=== PATIENT | female | born 1960 | race Caucasian/White ===

== ENCOUNTER 2021-09-08 12:31 | Outpatient (CLI) | payer OTHER, SELFPAY ==
--- NOTE | 2021-09-08 12:50 | ECHO_ITS ---
Patient Info Name: Lakia Montesinos Age: 60 years : 1960 Gender: Female Ht: 67 in Wt: 156 lbs BSA: 1.84 m2 HR: 88 bpm BP: 128 / 79 mmHg Technical Quality: Good Exam Date: 09/08/2021 1:44 PM Exam Location: [facility] Pulmonary Patient Status: Outpatient Admit Date: 09/08/2021 Staff Ordering Physician: Eugene Hanna MD Wildlife Ecologist: Nicolasa Max RDCS Attending Provider: Eugene Hanna MD Referring Physician: Cyndi GARCIA; Exam Type: CA echo doppler color flow Study Info Indications R07.89 - Other chest pain Complete two-dimensional, color flow and Doppler transthoracic echocardiogram is performed. Summary 1. Complete two-dimensional, color flow and Doppler transthoracic echocardiogram is performed. 2. Left ventricular chamber dimension is normal. 3. Left ventricular systolic function is normal, estimated at 55-60%. 4. The left ventricular diastolic function is grade I diastolic dysfunction. 5. E/e' 7 is not elevated. 6. There is trace tricuspid valve regurgitation. 7. No pulmonary hypertension, estimated pulmonary arterial systolic pressure is 27 mmHg. 8. There is loculated small to moderate posterior pericardial effusion measuring up to 1.7 cm. Left Ventricle E/e' 7 is not elevated. Left ventricular chamber dimension is normal. Left ventricular systolic function is normal, estimated at 55-60%. The left ventricular diastolic function is grade I diastolic dysfunction. Right Ventricle Right ventricular chamber dimension is normal. Right ventricular systolic function is normal. Left Atria Left atrial chamber dimension is normal. Right Atria Right atrial chamber dimension is normal. Aortic Valve The aortic valve is trileaflet. There is no aortic valve stenosis. There is no aortic valve regurgitation. Pulmonic Valve There is no pulmonic regurgitation. Mitral Valve There is no mitral valve stenosis. There is no mitral valve regurgitation. Tricuspid Valve There is trace tricuspid valve regurgitation. No pulmonary hypertension, estimated pulmonary arterial systolic pressure is 27 mmHg. Pericardium/Pleural There is loculated small to moderate posterior pericardial effusion measuring up to 1.7 cm. Inferior Vena Cava Normal inferior vena cava with >50% collapse upon inspiration consistent with normal right atrial pressure, 5 mmHg. Aorta The aortic root size at the sinus of Valsalva is normal. Left Ventricular Outflow Tract Name Value Normal LVOT 2D LVOT Diameter 2.0 cm LVOT Doppler LVOT Peak Gradient 3 mmHg LVOT Mean Gradient 1 mmHg LVOT VTI 15 cm LVOT VTI/AV VTI Ratio 0.9 LVOT Stroke Volume 48 ml LVOT CO 11.3 l/min LVOT CI 6.1 l/min/m2 Pulmonic Valve Name Value Normal
--- NOTE | 2021-09-11 12:21 | WPDHOLTEREM ---
Holter/Event Monitor Holter/Event Monitor Date of procedure: 09/08/21 Holter/Event Procedure: 48 Hr Holter Monitor Indications: Chest pain Conclusion: 1. 48 hour holter monitor on 09/08/21. 2. Underlying rhythm is sinus rhythm. HR range 43-162 bpm; average HR 87 bpm. 3. There are 345 premature supraventricular complexes, 1 supraventricular couplet, and 54 supraventricular trigeminy. 4. There are 3 premature ventricular complexes. No ventricular tachycardia. 5. No sinoatrial or atrioventricular blocks. No significant pauses greater than 2 seconds. 6. Patient reports symptoms of flutter which demonstrate sinus rhythm, HR range 81-123 bpm.
== END 2021-09-08 12:32 | disposition home or self-care (01) ==
PROVIDERS: PCP Internal Medicine; Visit Provider Internal Medicine
DX: R07.9 Chest pain, unspecified (principal); R00.2 Palpitations; I31.3 Pericardial effusion (noninflammatory)
CPT/HCPCS: 93225; 93226; 93306

== ENCOUNTER 2021-09-15 08:44 | Outpatient (CLI) | payer OTHER, SELFPAY ==
--- NOTE | ~2021-09-15 | XR_ITS ---
EXAMINATION: XR UGIAC w barium swallow DATE: 09/15/2021 09:23 INDICATION: Gastroesophageal reflux disease. Other chest pain. TECHNIQUE: The patient drank thick barium, gas-producing crystals, and thin barium. Fluoroscopy of th e esophagus, stomach, and proximal small bowel was performed. Fluoroscopy exposure time was 0.5 minut es. The total number of images was 453. Total dose-area product was 0.9 Gy-cm^2. COMPARISON: None. FINDINGS: There is no mass or stricture of the esophagus. Esophageal motility is normal. There is no hiatal hernia. There was no gastroesophageal reflux with provocative maneuvers. The stomach and proxi mal small bowel show normal folding patterns. IMPRESSION: 1. Normal esophagram and upper gastrointestinal series. Reviewed, dictated and finalized at location A.
== END 2021-09-15 08:45 | disposition home or self-care (01) ==
PROVIDERS: PCP Internal Medicine; Visit Provider Internal Medicine
DX: R07.89 Other chest pain (principal); R10.13 Epigastric pain; R13.10 Dysphagia, unspecified
CPT/HCPCS: 74246

== ENCOUNTER 2022-03-30 09:36 | Outpatient (CLI) | payer OTHER, SELFPAY ==
--- NOTE | ~2022-03-30 | XR_ITS ---
EXAMINATION: XR ankle LT min 3V DATE: 03/30/2022 09:53 INDICATION: Left ankle pain TECHNIQUE: Anteroposterior, lateral, mortise, and additional oblique view of the ankle were obtained. COMPARISON: None. FINDINGS: There is mild irregularity at the medial malleolus which has the appearance of a prior frac ture. No acute fracture is identified. Bone alignment is normal. The joint spaces are unremarkable. P osterior and plantar calcaneal enthesophytes are noted. IMPRESSION: 1. No acute osseous abnormality. Reviewed, dictated and finalized at location A.
== END 2022-03-30 09:37 | disposition home or self-care (01) ==
PROVIDERS: PCP Internal Medicine; Visit Provider Internal Medicine
DX: S99.912A Unspecified injury of left ankle, initial encounter (principal); M77.32 Calcaneal spur, left foot
CPT/HCPCS: 73610

== ENCOUNTER 2022-04-30 00:11 | Day surgery (SDC) | payer OTHER, SELFPAY ==
[2022-03-05 11:34] VITALS: BMI 24.1
[2022-04-13 15:10] VITALS: BMI 24.1
--- NOTE | 2022-04-13 15:11 | PC.NURSE ---
Spoke with pt. regarding new date and time of procedure. No questions or concerns. Verbalized understanding. Chart updated.
--- NOTE | 2022-04-30 06:38 | PM.HPGS ---
History of Present Illness History of Present Illness Consent: Risks, benefits, and alternatives have been discussed and questions answered. Patient agrees to proceed with procedure. Chief complaint: hx of colon polyps, neoplasm screening Narrative: Lakia Montesinos is a 61 year old female Who is referred for colon cancer screening. She has had a polyp removed in the past. An uncle on her mother's side and Mike parent on her father side had colon .cancer Review of Systems Review of Systems: All systems reviewed & are unremarkable except as noted in HPI and below PMFSH Past Medical History Medical History Abnormal finding of blood chemistry Aphthous ulcer BMI 23.0-23.9, adult BMI 24.0-24.9, adult Chronic fatigue Chronic pain of right knee Constipation Encounter for preventive health examination Encounter for routine adult health examination without abnormal findings Family history of breast cancer FHx: colon cancer Frequent UTI GERD (gastroesophageal reflux disease) Hx of colonic polyps Hyperlipidemia IFG (impaired fasting glucose) Impacted cerumen of both ears Impacted cerumen of both ears Mild single current episode of major depressive disorder On skilled nursing drug therapy Osteopenia Osteoporosis Osteoporosis Palpitations Personal history of COVID-19 Primary insomnia Rectal pain Right hip pain Suprapubic pain Urinary frequency Surgical History Surgical History History of total right knee replacement Family History Family History Mother Diabetes mellitus Hypertension Family history of kidney disease Sibling Family history of malignant neoplasm of breast in first degree relative Social History Social History Smoking packs per day: 0.25 Smoking cigarettes per day: 5.0 Years smoked: 3 Smoking pack-years: 0.75 Smoking status: Former smoker Tobacco type: cigarettes Second hand tobacco smoke exposure: No Smoking end date: 07/05/78 Alcohol intake: current Alcohol use details: occasional wine Substance use: current Other substance usage details: 5mg THC gummy at bedtime Living arrangements: with family Spiritual care concerns: No Meds Home Medications and Allergies Home Medications Medication Instructions Recorded Confirmed Type cephalexin 250 mg capsule 250 mg PO PRN PRN other 12/20/19 03/05/22 History ascorbic acid (vitamin C) 500 mg 500 mg PO DAILY 12/05/20 03/05/22 History tablet ibuprofen 200 mg tablet (Advil) 200 mg PO Q6H PRN Pain 12/05/20 03/05/22 History zinc sulfate 50 mg zinc (220 mg) 50 mg PO DAILY 12/05/20 03/05/22 History tablet rosuvastatin 20 mg tablet See Rx Instructions .Route 05/09/21 03/05/22 Rx .COMPLEX #90 tabs cholecalciferol (vitamin D3) 50 50 mcg PO DAILY 06/19/21 03/05/22 History mcg (2,000 unit) capsule famotidine 20 mg tablet See Rx Instructions .Route 04/13/22 04/13/22 Rx .COMPLEX #90 tabs Allergies Allergy/AdvReac Type Severity Reaction Status Date / Time amoxicillin AdvReac Mild Hives / Verified 04/30/22 06:50 Red Face Exam Resp: Auscultation: clear to auscultation bilaterally Cardio: Rate: regular rate Rhythm: regular rhythm GI: GI Palp: Yes Soft to palpation and No Tenderness to palpation present (GI) Assessment and Plan Assessment and plan (1) Colon cancer screening: Code(s): Z12.11 - Encounter for screening for malignant neoplasm of colon Status: Acute Assessment and Plan: Colonoscopy with possible biopsy or polypectomy or cautery or injection of substances.
[2022-04-30 06:51] VITALS: BP 132/72; PULSE 93; RESP 18; TEMP 36.2; O2SAT 99; BMI 24.0
[2022-04-30] MEDS: LACTATED RINGERS 1,000 ML 150 ML IV CONT (07:01)
--- NOTE | 2022-04-30 07:56 | WPDANESEPPF ---
Anes - Initial Pre Proc Eval Procedure: Operation Date: 04/30/22 08:00 Proposed Procedures p Screening Colonoscopy - Juan Pablo Gaston MD Date/Time: 04/30/22 07:56 Surgeon: Juan Pablo Gaston MD Pre Op Diagnosis: hx of colon polyps, neoplasm screening Patient Data Age: 61 Gender: F Height: 1.7 m Weight: 69.8 kg Last Vital Signs Temp 97.1 F L 04/30/22 06:51 Pulse 93 04/30/22 06:51 Resp 18 04/30/22 06:51 BP 132/72 04/30/22 06:51 Pulse Ox 99 04/30/22 06:51 O2 Del Method Room Air 04/30/22 06:51 Allergies Allergy/AdvReac Type Severity Reaction Status Date / Time amoxicillin AdvReac Mild Hives / Verified 04/30/22 06:50 Red Face Home Medications Medication Instructions Recorded Confirmed Type cephalexin 250 mg capsule 250 mg PO PRN PRN other 12/20/19 03/05/22 History ascorbic acid (vitamin C) 500 mg 500 mg PO DAILY 12/05/20 03/05/22 History tablet ibuprofen 200 mg tablet (Advil) 200 mg PO Q6H PRN Pain 12/05/20 03/05/22 History zinc sulfate 50 mg zinc (220 mg) 50 mg PO DAILY 12/05/20 03/05/22 History tablet rosuvastatin 20 mg tablet See Rx Instructions .Route 05/09/21 03/05/22 Rx .COMPLEX #90 tabs cholecalciferol (vitamin D3) 50 50 mcg PO DAILY 06/19/21 03/05/22 History mcg (2,000 unit) capsule famotidine 20 mg tablet See Rx Instructions .Route 04/13/22 04/13/22 Rx .COMPLEX #90 tabs Patient hx anesthesia problems: none Family hx anesthesia problems: none Results Review: All pre-operative results and documents have been reviewed as part of the pre-operative evaluation. [facility] Past Medical History Medical History Abnormal finding of blood chemistry Aphthous ulcer BMI 23.0-23.9, adult BMI 24.0-24.9, adult Chronic fatigue Chronic pain of right knee Constipation Encounter for preventive health examination Encounter for routine adult health examination without abnormal findings Family history of breast cancer FHx: colon cancer Frequent UTI GERD (gastroesophageal reflux disease) Hx of colonic polyps Hyperlipidemia IFG (impaired fasting glucose) Impacted cerumen of both ears Impacted cerumen of both ears Mild single current episode of major depressive disorder 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 Osteopenia Osteoporosis Osteoporosis Palpitations Personal history of COVID-19 Primary insomnia Rectal pain Right hip pain Suprapubic pain Urinary frequency Surgical History Surgical History History of total right knee replacement Family History Family History Mother Diabetes mellitus Hypertension Family history of kidney disease Sibling Family history of malignant neoplasm of breast in first degree relative Social History Social History Smoking packs per day: 0.25 Smoking cigarettes per day: 5.0 Years smoked: 3 Smoking pack-years: 0.75 Smoking status: Former smoker Tobacco type: cigarettes Second hand tobacco smoke exposure: No Smoking end date: 07/05/78 Alcohol intake: current Alcohol use details: occasional wine Substance use: current Other substance usage details: 5mg THC gummy at bedtime Living arrangements: with family Spiritual care concerns: No Anes - Eval Final PreProcedure Day of Procedure 04/30/22 07:56 Patient weight: normal Heart: regular rate and rhythm Lungs: clear to auscultation Neurological: alert and oriented Last oral intake: >/= 8 hours ASA classification: II Emergent: no Anesthetic plan: proceed Anesthesia type and monitoring: general GIVS and standard monitoring Results Review: All pre-operative results and documents have been reviewed as part of the pre-operative evaluation. Informed Consent: The patient's anesthetic plan and its attendant risks and benefits were discussed with
[2022-04-30 08:13] VITALS: BP 93/59; PULSE 74; RESP 20; O2SAT 97
[2022-04-30 08:23] VITALS: BP 113/66; PULSE 80; RESP 17; O2SAT 100
[2022-04-30 08:33] VITALS: BP 127/89; PULSE 89; RESP 23; O2SAT 100
== END 2022-04-30 08:39 | disposition home or self-care (01) ==
PROVIDERS: PCP Internal Medicine; Visit Provider Internal Medicine Gastroenterology
PROC: 0DJD8ZZ Inspection of Lower Intestinal Tract, Via Natural or Artificial Opening Endoscopic (ICD-10-PCS; CPT 45378; principal; 2022-04-30 08:00)
DX: Z12.11 Encounter for screening for malignant neoplasm of colon (principal); Z80.0 Family history of malignant neoplasm of digestive organs; K21.9 Gastro-esophageal reflux disease without esophagitis; E78.5 Hyperlipidemia, unspecified; M81.0 Age-related osteoporosis without current pathological fracture; F32.89 Other specified depressive episodes; Z87.891 Personal history of nicotine dependence; F12.90 Cannabis use, unspecified, uncomplicated
CPT/HCPCS: 45378; J2704; J7120

== ENCOUNTER 2022-07-15 06:46 | Outpatient (CLI) | payer OTHER, SELFPAY ==
--- NOTE | ~2022-07-15 | XR_ITS ---
EXAMINATION: XR thoracic spine 3V DATE: 07/15/2022 07:05 INDICATION: Thoracic spine pain TECHNIQUE: AP, lateral in neutral, flexion, extension and lateral swimmer's views of the thoracic spi ne were obtained. COMPARISON: 10/24/2017 FINDINGS: There is a compression fracture of the T8 vertebral body with approximately 40% loss of ant erior vertebral body height. There is a mild compression fracture of T12 with approximately 30% loss of anterior vertebral body height. No hypermobility is noted with flexion or extension. The remaining vertebral body heights are normal. The intervertebral disc spaces are maintained. The lungs are vicente r. The cardiomediastinal silhouette is normal. IMPRESSION: 1. Age indeterminate compression fractures of T8 and T12. Reviewed, dictated and finalized at location B. 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
== END 2022-07-15 06:47 | disposition home or self-care (01) ==
PROVIDERS: PCP Internal Medicine; Visit Provider Internal Medicine
DX: S22.060A Wedge compression fracture of T7-T8 vertebra, initial encounter for closed fracture (principal); S22.070A Wedge compression fracture of T9-T10 vertebra, initial encounter for closed fracture; S22.080A Wedge compression fracture of T11-T12 vertebra, initial encounter for closed fracture; X58.XXXA Exposure to other specified factors, initial encounter
CPT/HCPCS: 72072

== ENCOUNTER 2022-10-01 00:14 | Day surgery (SDC) | payer OTHER, SELFPAY ==
[2022-09-18 14:03] VITALS: BMI 24.8
--- NOTE | 2022-09-30 14:14 | PM.HPGS ---
History of Present Illness History of Present Illness Consent: Risks, benefits, and alternatives have been discussed and questions answered. Patient agrees to proceed with procedure. Chief complaint: GERD Narrative: Lakia Montesinos is a 61 year old female Who suffers from chronic acid reflux symptoms. She does regurgitate liquids particularly when bending over.? After starting her on pantoprazole once a day her symptoms are marginally improved. Review of Systems Review of Systems: All systems reviewed & are unremarkable except as noted in HPI and below PMFSH Past Medical History Medical History Abnormal finding of blood chemistry Aphthous ulcer BMI 24.0-24.9, adult Chest pain Chronic fatigue Chronic pain of right knee Dysphagia Encounter for preventive health examination Family history of breast cancer FHx: colon cancer Frequent UTI GERD (gastroesophageal reflux disease) Hx of colonic polyps Hyperlipidemia IFG (impaired fasting glucose) Impacted cerumen of both ears Impacted cerumen of both ears Mild single current episode of major depressive disorder On correction drug therapy Osteopenia Osteoporosis Palpitations Personal history of COVID-19 Primary insomnia Rectal pain Right hip pain Suprapubic pain Thoracic back pain Surgical History Surgical History History of total right knee replacement Family History Family History Mother Diabetes mellitus Hypertension Family history of kidney disease Sibling Family history of malignant neoplasm of breast in first degree relative Social History Social History Smoking packs per day: 0.25 Smoking cigarettes per day: 5.0 Years smoked: 3 Smoking pack-years: 0.75 Smoking status: Former smoker Tobacco type: cigarettes Second hand tobacco smoke exposure: No Smoking end date: 07/05/78 Alcohol intake: current Alcohol use details: 1-2 glasses of wine Substance use: current Substance use type: marijuana Other substance usage details: nightly for sleep Lack of Transportation: No Lack of Food: Never True Current Housing: I Have Housing Concerned About Future Housing: No Difficulty Paying Gas/Electric Bills: No Difficulty Paying for Meds: No Currently Unemployed: No Education: High School Diploma/GED Difficulty w/ Childcare or Family Care: No Living arrangements: with family Gender identity (if verbalized by the patient): Female Spiritual care concerns: No Meds Home Medications and Allergies Home Medications Medication Instructions Recorded Confirmed Type cephalexin 250 mg capsule 250 mg PO PRN PRN other 12/20/19 10/01/22 History ascorbic acid (vitamin C) 500 mg 500 mg PO DAILY 12/05/20 10/01/22 History tablet ibuprofen 200 mg tablet (Advil) 200 mg PO Q6H PRN Pain 12/05/20 10/01/22 History zinc sulfate 50 mg zinc (220 mg) 50 mg PO DAILY 12/05/20 10/01/22 History tablet pantoprazole 40 mg tablet,delayed 40 mg PO QAM #90 tabs 07/08/22 10/01/22 Rx release cholecalciferol (vitamin D3) 50 100 mcg PO DAILY 07/15/22 10/01/22 History mcg (2,000 unit) capsule rosuvastatin 20 mg tablet 20 mg PO DAILY 09/18/22 10/01/22 History Allergies Allergy/AdvReac Type Severity Reaction Status Date / Time amoxicillin AdvReac Mild Hives / Verified 10/01/22 07:39 Red Face Exam Const: General: alert Orientation/consciousness: patient oriented x3 Resp: Auscultation: clear to auscultation bilaterally Cardio: Rhythm: regular rhythm GI: GI Palp: Yes Soft to palpation and No Tenderness to palpation present (GI) Neuro: General: patient oriented x3 Assessment and Plan Assessment and plan (1) GERD (gastroesophageal reflux disease): Code(s): K21.9 - Gastro-esophageal reflux disease
[2022-10-01 07:40] VITALS: BP 118/71; PULSE 95; RESP 16; TEMP 36.3; O2SAT 99
[2022-10-01] MEDS: LACTATED RINGERS 1,000 ML 150 ML IV CONT (07:48)
--- NOTE | 2022-10-01 08:09 | WPDANESEPPF ---
Anes - Initial Pre Proc Eval Procedure: Operation Date: 10/01/22 09:00 Proposed Procedures p Esophagogastroduodenoscopy - Juan Pablo Gaston MD Date/Time: 10/01/22 08:09 Surgeon: Juan Pablo Gaston MD Pre Op Diagnosis: GERD Patient Data Age: 61 Gender: F Height: 1.7 m Weight: 70.9 kg Last Vital Signs Temp 36.3 C L 10/01/22 07:40 Pulse 95 10/01/22 07:40 Resp 16 10/01/22 07:40 BP 118/71 10/01/22 07:40 Pulse Ox 99 10/01/22 07:40 O2 Del Method Room Air 10/01/22 07:40 Allergies Allergy/AdvReac Type Severity Reaction Status Date / Time amoxicillin AdvReac Mild Hives / Verified 10/01/22 07:39 Red Face Home Medications Medication Instructions Recorded Confirmed Type cephalexin 250 mg capsule 250 mg PO PRN PRN other 12/20/19 10/01/22 History ascorbic acid (vitamin C) 500 mg 500 mg PO DAILY 12/05/20 10/01/22 History tablet ibuprofen 200 mg tablet (Advil) 200 mg PO Q6H PRN Pain 12/05/20 10/01/22 History zinc sulfate 50 mg zinc (220 mg) 50 mg PO DAILY 12/05/20 10/01/22 History tablet pantoprazole 40 mg tablet,delayed 40 mg PO QAM #90 tabs 07/08/22 10/01/22 Rx release cholecalciferol (vitamin D3) 50 100 mcg PO DAILY 07/15/22 10/01/22 History mcg (2,000 unit) capsule rosuvastatin 20 mg tablet 20 mg PO DAILY 09/18/22 10/01/22 History Patient hx anesthesia problems: none Family hx anesthesia problems: none Results Review: All pre-operative results and documents have been reviewed as part of the pre-operative evaluation. 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 Osteopenia Osteoporosis Palpitations Personal history of COVID-19 Primary insomnia Rectal pain Right hip pain Suprapubic pain Thoracic back pain Surgical History Surgical History History of total right knee replacement Family History Family History Mother Diabetes mellitus Hypertension Family history of kidney disease Sibling Family history of malignant neoplasm of breast in first degree relative Social History Social History Smoking packs per day: 0.25 Smoking cigarettes per day: 5.0 Years smoked: 3 Smoking pack-years: 0.75 Smoking status: Former smoker Tobacco type: cigarettes Second hand tobacco smoke exposure: No Smoking end date: 07/05/78 Alcohol intake: current Alcohol use details: 1-2 glasses of wine Substance use: current Substance use type: marijuana Other substance usage details: nightly for sleep Lack of Transportation: No Lack of Food: Never True Current Housing: I Have Housing Concerned About Future Housing: No Difficulty Paying Gas/Electric Bills: No Difficulty Paying for Meds: No Currently Unemployed: No Education: High School Diploma/GED Difficulty w/ Childcare or Family Care: No Living arrangements: with family Gender identity (if verbalized by the patient): Female Spiritual care concerns: No Anes - Eval Final PreProcedure Day of Procedure 10/01/22 08:09 Patient weight: normal Heart: regular rate and rhythm Lungs: clear to auscultation Airway: Mallampati scale class II Neurological: alert and oriented Last oral intake: >/= 8 hours ASA classification: II Emergent: no Anesthetic plan: proceed Anesthesia type
[2022-10-01] MEDS: BENZOCAINE (*SP) 60 ML SPRAY CAN (HURRICAINE) 1 SPRAY MUCOUS MEM (08:58)
[2022-10-01 09:09] VITALS: BP 109/72; PULSE 76; RESP 16; O2SAT 98
[2022-10-01 09:19] VITALS: BP 110/79; PULSE 78; RESP 20; O2SAT 99
[2022-10-01 09:29] VITALS: BP 116/77; PULSE 76; RESP 20; O2SAT 99
== END 2022-10-01 09:34 | disposition home or self-care (01) ==
PROVIDERS: PCP Internal Medicine; Visit Provider Internal Medicine Gastroenterology
PROC: 0DJ08ZZ Inspection of Upper Intestinal Tract, Via Natural or Artificial Opening Endoscopic (ICD-10-PCS; CPT 43235; principal; 2022-10-01 09:00)
DX: K21.9 Gastro-esophageal reflux disease without esophagitis (principal); K29.70 Gastritis, unspecified, without bleeding; E78.5 Hyperlipidemia, unspecified; M81.0 Age-related osteoporosis without current pathological fracture; Z87.891 Personal history of nicotine dependence; F12.90 Cannabis use, unspecified, uncomplicated
CPT/HCPCS: 43239; 87081; J2704; J7120

== ENCOUNTER 2024-05-16 13:03 | Outpatient (CLI) | payer OTHER, SELFPAY ==
--- NOTE | ~2024-05-16 | XR_ITS ---
XR abdomen obstructive series Ordering provider: Eugene Hanna MD History: . MID ABD PAIN/CONSTIPATION . Comparison: None. FINDINGS: BOWEL: Fecal material seen in the right side of the colon. Nonobstructive bowel gas pattern. ORGANOMEGALY: None. SIGNIFICANT PATHOLOGIC CALCIFICATIONS: None. OTHER: No free air is seen under the diaphragm. IMPRESSION: NO ACUTE ABDOMINAL FINDINGS. Reviewed, dictated and finalized at location A. DRIVER
== END 2024-05-16 13:04 | disposition home or self-care (01) ==
PROVIDERS: PCP Internal Medicine; Visit Provider Internal Medicine
DX: R10.9 Unspecified abdominal pain (principal); K59.00 Constipation, unspecified
CPT/HCPCS: 74019

== ENCOUNTER 2024-08-28 09:08 | Outpatient (CLI) | payer OTHER, SELFPAY ==
--- OUTSIDE RECORDS SUMMARY | 2024-08-28 09:43 | XMS_ITS | Referral Summary ---
Author Organization [facility] Address [address] [place] [address] Care Team Providers Care Paunch Trimmer Name Role Phone Alexander Muñoz MD Unavailable [phone] Eugene Hanna MD Primary Care Provider [phone] Source Comments [facility],non-owned Affiliates and Associated Physician Practices is amultiple site organization consisting of ambulatory clinics and hospital sitesin [place], [place], [place] and [place]. This disclosure is being madepursuant to the Care Everywhere program and may not contain all information available regarding this patient. Last updated 18.[facility] Allergies Active Allergy Reactions Criticality Noted Date Comments Amoxicillin Unknown 08/27/2017 Hot flashes Medications * Be aware that medications may not be up to date on this document. Alwaysverify current medications with the patient. Medication Sig Dispensed Refills Start Date End Date Status rosuvastatin (CRESTOR) 20 MG tablet Take 20 mg by mouth once daily 09/08/2020 Active cephalexin (KEFLEX) 250 MG capsule Take 250 mg by mouth once daily as needed 1 capsule within 1 hr of intercourse Active Naphazoline-Phenira mine (NAPHCON-A OP) 1 drop by Ophthalmic route 2 times daily as needed Active vitamin D3 (CHOLECALCIFEROL) 25 MCG (1000 UNITS) tablet Take by mouth once daily Active erythromycin base EC (JAIRO-TAB) 333 MG tabletIndications:P resence of right artificial knee joint Take 1 (one) tablet by mouth 3 times daily Take 1 pill 3 times daily on the day of dental appointment and again the day after dental appointment 18 tablet 2 01/20/2022 Active Active Problems Problem Noted Date Diagnosed Date Presence of right artificial knee joint 01/24/20 22 Pure hypercholesterolemia 08/02/2019 Mild single current episode of major depressive disorder 08/02/2019 History of colon polyps 08/02/2019 Chronic fatigue 08/02/2019 Primary osteoarthritis of right knee 02/21/2018 Palpitations 07/08/2017 Family history of breast cancer 10/17/2014 Social History Tobacco Use Types Packs/Day Years Used Date Smoking Tobacco: Former Cigarettes Q uit: 1979 Smokeless Tobacco: Never Alcohol Use Standard Drinks/Week Comments Yes 0 (1 standard drink = 0.6 oz pur e alcohol) glass of red wine periodically Sex and Gender Information Value Date Recorded Sex Assigned at Not on file Gender Identity Not on file Sexual Orientation Not on file Last Filed Vital Signs Vital Sign Reading Time Taken Comments Blood Pressure 129/64 01/21/2021 11:14 AM CDT Pulse 105 01/21/2021 11:14 AM CDT Temperature 36.9 C (98.4 F) 01/21/2021 11:14 AM CDT Respiratory Rate 17 01/21/2021 11:1 4 AM CDT Oxygen Saturation 97% 01/21/2021 11: 14 AM CDT Inhaled Oxygen Concentration - - Weight 70.2 kg (154 lb 12.8 oz) 01/20/2021 6:06 AM CDT Height 170.2 cm (5' 7 ) 01/20/2021 6:06 AM CDT Body Mass Index 24.25 01/20/2021 6:06 AM CDT Plan of Treatment Not on file Medical Devices Implanted Type Area Hydro Generation Manager Device Identifier Shelf Expiration Date Model / Serial / Lot Cmnt Bone Djo Srg Cblt 40gm Hvisc Strl Implanted:Qty: 1 on 01/20/2021 by Alexander Muñoz MD at [facility] Right: Knee [employer] 06/15/2021 600-15-000 / / [id number] Cmpnt Ptlr 28mm 1 Pg Wire Ascnt Arcm Kn Implanted:Qty: 1 on 01/20/2021 by Alexander Muñoz MD at [facility] Right: Knee [employer] 12/06/2025 [id number] / / [id number] Cmpnt Fem Kn Rt Cr Cmnt Prm Vngrd Intlk Implanted:Qty: 1 on 01/20/2021 by Alexander Muñoz MD at [facility] Right: Knee [employer] 10/24/2030 [id number] / / [id number] Tray Tib 75mm Kn Cocr I Beam Implanted:Qty: 1 on 01/20/2021 by Alexander Muñoz MD at [facility] Right: Knee [employer] 11/01/2030 [id number] / / [id number] Brng [id number] Vngrd Arcm Kn Ant Stab Implanted:Qty: 1 on 01/20/2021 by Alexander Muñoz MD at [facility] Right: Knee [employer] 09/07/2023 [id number] / / [id number] Advance Directives Documents on File Type Date Recorded Patient Movement Assembler Expl anation Adv Directive/Living Will/POA 12/27/2020 9:45 PM * Full Code (Latest Code Status on File) Date Activated Date Inactivated Comments 01/20/2021 10:46 AM 01/21/2021 1:40 PM Care Teams Paunch Trimmer Relationship Specialty Start Date End Date Eugene Hanna MD [address] [place] [address] PCP - General Internal Medicine 08/30/19 Alexander Muñoz [place] [address] [facility] [address] [address] Orthopedic Surgery 02/18/18
--- OUTSIDE RECORDS SUMMARY | 2024-08-28 09:43 | XMS_ITS | Clinical Summary ---
Author Organization [facility] [place] [address] Address [address] [place] [address] Care Team Providers Care Computer Security Specialist Name Role Phone Eugene Hanna MD Primary Care Provider [phone] Allergies Active Allergy Reactions Criticality Noted Date Comments Amoxicillin Unknown 08/27/2017 Hot flashes Medications cephalexin (KEFLEX) 250 mg capsule Take 1 capsule (250 mg total) by mouth daily as needed Active cholecalciferol 25 mcg (1,000 unit) tablet Take by mouth daily Active erythromycin DR (JAIRO-TAB) 333 mg Take 1 tablet (333 mg total) by mouth 3 (three) times a day 2 Active raloxifene (EVISTA) 60 mg tablet Take 1 tablet (60 mg total) by mouth daily 9 Active rosuvastatin (CRESTOR) 20 mg tablet Take 1 tablet (20 mg total) by mouth daily 1 Active meloxicam (MOBIC) 15 mg tablet Take 1 tablet (15 mg total) by mouth daily with breakfast Take 1 daily with food 30 tablet 4 Active Active Problems Problem Noted Date Diagnosed Date Presence of right artificial knee joint 01/24/20 22 Chronic fatigue 08/02/2019 Mild single current episode of major depressive disorder 08/02/2019 Pure hypercholesterolemia 08/02/2019 Primary osteoarthritis of right knee 02/21/2018 Palpitations 07/08/2017 Hot flashes, menopausal 02/06/2015 Surgical History Surgery Date Site/Laterality Comments JOINT REPLACEMENT Knee 01/2021 Medical History Medical History Date Comments GERD (gastroesophageal reflux disease) 2 Anxiety 2020 Family History Medical History Relation Name Comments Alcohol abuse Father Father Kidney disease Mother Mother Relation Name Status Comments Father Father Mother Mother Social History Tobacco Use Types Packs/Day Years Used Date Smoking Tobacco: Never Cigarettes 0.3 5.4 - 04/22/1979 Passive Smoke Exposure: Yes Smokeless Tobacco: Never Tobacco Cessation:Counseling Given: Not Answered Comments:Social smoker as a teen Personal Safety Answer Date Recorded Getting School Help Needed Not on file 09/17 Comments Unknown Sex and Gender Information Value Date Recorded Sex Assigned at Not on file Legal Sex Female 12:39 AM PAYROLL ANALYST Gender Identity Not on file Sexual Orientation Not on file Obstetrics History Last Filed Vital Signs Vital Sign Reading Time Taken Comments Blood Pressure - - Pulse - - Temperature - - Respiratory Rate - - Oxygen Saturation - - Inhaled Oxygen Concentration - - Weight 70.8 kg (156 lb) 12/14/2023 9:30 AM CDT Height 170.2 cm (5' 7 ) 12/14/2023 9:30 AM CDT Body Mass Index 24.43 12/14/2023 9:30 AM CDT Plan of Treatment Health Maintenance Due Date Last Done Comments Cervical Cancer Screening 1959 Colon Cancer Screening-Colonoscopy 1959 Depression Screening 1959 Hepatitis C Screening 1959 DTaP/Tdap/Td Vaccine (1 - Tdap) 11/22/1970 Hepatitis B Screening 11/22/1977 Regular Well Visit/Exam 18-64 11/22/1977 Zoster Vaccine (1 of 2) 11/22/2009 Covid-19 Vaccine ( season) 2024 06/13/2021, 09/25/2020 Influenza Vaccine (#1) 2024 07/13/2012 Breast Cancer Screening-Mammogram 08/19/2024 08/19/2023, 08/19/2023, 07/30/2022, Additional history exists Pneumococcal vaccine <65 Aged Out No longer eligible based on patient's age to complete this topic Procedures Procedure Name Priority Date/Time Associated Diagnosis Comments SCREENING MAMMOGRAM W ENZO Routine 05/07/2014 12:57 PM PAYROLL ANALYST from Last 3 Months or Most Recently Relevant to Health Maintenance Results * Screening Mammogram W Enzo (05/07/2014 12:57 PM PAYROLL ANALYST) Anatomical Region Laterality Modality Breast N/A Mammography 05/07/2014 12:5 7 PM PAYROLL ANALYST Narrative 05/09/2014 11:11 AM PAYROLL ANALYST YARITZA MORTON M.D. FINAL REPORT ACC# Date Time Exam [id number] May 07, 2014 12:57:00 [facility] [place] [id number] Bilateral screen w enzo Technologist(s): Christa Garces; ; EXAMINATION: Mammogram Technique: Bilateral Bilateral Full-Field Digital Screening Mammogram and Digital Breast Tomosynthesis were performed. Views obtained: bilateral craniocaudal and bilateral mediolateral oblique. Computer Aided Detection of the 2D images was performed with [employer].3 version 9.3. Mammogram Findings: The present examination has been compared to prior imaging studies performed at [facility] on 05/09/2013, 05/05/2013 and 04/26/2012. There are scattered fibroglandular densities. There are multiple masses in both breasts. Finding remains unchanged from the prior study. IMPRESSION: Masses in both breasts are benign. Annual screening mammography is recommended. OVERALL FINAL ASSESSMENT: BI-RADS CATEGORY 2: Benign. Requested By: Dictated By: YARITZA MORTON M.D. on May 09 2014 11:11A This document has been electronically signed by: YARITZA MORTON M.D. on May 09 2014 11:11A Procedure Note Provider, MD Candida - 10/27/2016 YARITZA MORTON M.D. FINAL REPORT ACC# Date Time Exam [id number] May 07, 2014 12:57:00 [facility] [place] [id number] Bilateral screen w enzo Technologist(s): Christa Garces; ; EXAMINATION: Mammogram Technique: Bilateral Bilateral Full-Field Digital Screening Mammogram and Digital Breast Tomosynthesis were performed. Views obtained: bilateral craniocaudal and bilateral mediolateral oblique. Computer AidedDetection of the 2D images was performed with [employer]et[employer].3 version 9.3. Mammogram Findings: The present examination has been compared to prior imaging studies performed at [facility] on 05/09/2013, 05/05/2013 and 04/26/2012. There are scattered fibroglandular densities. There are multiple masses in both breasts. Finding remains unchangedfrom the prior study. IMPRESSION: Masses in both breasts are benign. Annual screening mammography is recommended. OVERALL FINAL ASSESSMENT: BI-RADS CATEGORY 2: Benign. Requested By: Dictated By: YARITZA MORTON M.D. on May 09 2014 11:11A This document has been electronically signed by: YARITZA MORTON M.D. on May 09 2014 11:11A Historical Provider MD [facility]ED[facility] Lawanda l Result from Last 3 Months or Most Recently Relevant to Health Maintenance Insurance [email or web address] [facility] [place] [address] [email or web address] Care Teams Computer Security Specialist Relationship Specialty Start Date End Date Eugene Hanna MD [address] [facility] [place], [place] [id number] PCP - General Internal Medicine 09/18/21
--- OUTSIDE RECORDS SUMMARY | 2024-08-28 09:43 | XMS_ITS | Referral Summary ---
Author Organization [facility] [address] Address [address] [place] [address] Care Team Providers Care Medical Clinic Manager Name Role Phone Eugene Hanna MD Primary Care Provider [phone] Allergies Active Allergy Reactions Criticality Noted Date [...] 02/21/2018 Palpitations 07/08/2017 Hot flashes, menopausal 02/06/2015 Social History Tobacco Use Types Packs/Day Years [...] on file Legal Sex Female 12:39 AM BUSINESS TEAM LEADER Gender Identity Not on file Sexual Orientation [...] 12/14/2023 9:30 AM CDT Plan of Treatment Not on file Procedures Procedure Name Priority Date/Time Associated Diagnosis Comments SCREENING MAMMOGRAM W ENZO Routine 05/07/2014 12:57 PM BUSINESS TEAM LEADER from Last 3 Months or Most Recently Relevant to Health Maintenance Results * Screening Mammogram W Enzo (05/07/2014 12:57 PM BUSINESS TEAM LEADER) Anatomical Region Laterality Modality Breast N/A Mammography 05/07/2014 12:5 7 PM BUSINESS TEAM LEADER Narrative 05/09/2014 11:11 AM BUSINESS TEAM LEADER YARITZA MORTON M.D. FINAL REPORT ACC# Date Time Exam [id number] May 07, 2014 12:57:00 [facility] [id number] Bilateral screen w enzo Technologist(s): Christa Garces; ; EXAMINATION: Mammogram Technique: Bilateral Bilateral Full-Field Digital Screening Mammogram and Digital Breast Tomosynthesis were performed. Views obtained: bilateral craniocaudal and bilateral mediolateral oblique. Computer Aided Detection of the 2D images was performed with [employer].3 version 9.3. Mammogram Findings: The present examination has been compared to prior imaging studies performed at [facility] on 05/09/2013, 05/05/2013 and 04/26/2012. There are [...] M.D. FINAL REPORT ACC# Date Time Exam [id number] May 07, 2014 12:57:00 [facility] [id number] Bilateral screen w enzo Technologist(s): Christa Garces; ; EXAMINATION: Mammogram Technique: Bilateral Bilateral Full-Field Digital Screening Mammogram and Digital Breast Tomosynthesis were performed. Views obtained: bilateral craniocaudal and bilateral mediolateral oblique. Computer AidedDetection of the 2D images was performed with [employer].3 version 9.3. Mammogram Findings: The present examination has been compared to prior imaging studies performed at [facility] on 05/09/2013, 05/05/2013 and 04/26/2012. There are [...] Most Recently Relevant to Health Maintenance Insurance [employer] Care Teams Medical Clinic Manager Relationship Specialty Start Date End Date Eugene Hanna MD [address] [place] [address] PCP - General Internal Medicine 09/18/21
--- OUTSIDE RECORDS SUMMARY | 2024-08-28 09:43 | XMS_ITS | Clinical Summary ---
Author Organization [facility] Address [address] [place] [place] [address] Care Team Providers Care Mainspring Strip Inspector Name Role Phone Alexander Muñoz MD Unavailable [phone] Eugene Hanna MD Primary Care Provider [phone] Source Comments [facility],non-owned Affiliates and Associated Physician Practices is amultiple site organization consisting of ambulatory clinics and hospital sitesin [place], [place], [place] and [place]. This disclosure is being madepursuant to the Care Everywhere program and may not contain all information available regarding this patient. Last updated 18.[facility] [employer]ag[employer] Allergies Active Allergy Reactions Criticality Noted Date [...] Date Smoking Tobacco: Former Cigarettes Q uit: 1978 Smokeless Tobacco: Never Alcohol Use Standard Drinks/Week [...] 01/20/2021 6:06 AM CDT Plan of Treatment Health Maintenance Due Date Last Done Comments COLOGUARD (AGES 45-75) - COL ON CA SCREENING 1959 COLON MONITORING 1959 COLONOSCOPY - COLON CA SCREENING 1959 CT COLONOGRAPHY - COLON CA SCREENING 1959 Colorectal Cancer Screening 1959 FIT - COLON CA SCREENING 1959 FLEX SIG - COLON CA SCREENING 1959 MAMMOGRAM 1959 PAP SMEAR 1959 HIV SCREENING 11/22/1974 HEPATITIS C SCREENING 11/18/1977 DTAP/TDAP/TD VACCINES (1 - Tdap) 11/22/1978 PNEUMOCOCCAL VACCINE 50+ (1 of 1 - PCV) 11/22/2009 ZOSTER VACCINE (1 of 2) 11/22/2009 COVID-19 VACCINE (1 - 2024-2 5 season) 2024 INFLUENZA VACCINE (#1) 2024 07/13/2012 DEPRESSION SCREENING 07/05/2024 Respiratory Syncytial Virus (RSV) Vaccine Pt: or over 60 yrs (1 - 1-dose 75+ series) 11/22/2034 HEPATITIS B VACCINE Aged Out No longe r eligible based on patient's age to complete this topic HIB VACCINE Aged Out No longer eligi ble based on patient's age to complete this topic HPV VACCINE Aged Out No longer eligi ble based on patient's age to complete this topic MENINGOCOCCAL (Group B) VACCINE Aged Out No longer eligible based on patient's age to complete this topic MENINGOCOCCAL VACCINE Aged Out No mary onofre eligible based on patient's age to complete this topic PNEUMOCOCCAL VACCINE Aged Out No long er eligible based on patient's age to complete this topic Medical Devices Implanted Type Area Dog Pound Attendant Device Identifier Shelf Expiration Date Model / Serial / Lot Cmnt Bone Djo Srg Cblt 40gm Hvisc Strl Implanted:Qty: 1 on 01/20/2021 by Alexander Muñoz MD at [facility] Right: Knee [employer] 06/15/2021 600-15-000 / / [id number] Cmpnt Ptlr 28mm 1 Pg Wire Ascnt Arcm Kn Implanted:Qty: 1 on 01/20/2021 by Alexander Muñoz MD at [facility] Right: Knee [employer] 12/06/2025 [id number] / / [id number] Cmpnt Fem Kn Rt Cr Cmnt Prm Vngrd Intlk Implanted:Qty: 1 on 01/20/2021 by Alexander Muñoz MD at [facility] Right: Knee [employer] 10/24/2030 [id number] / / [id number] Tray Tib 75mm Kn Cocr I Beam Implanted:Qty: 1 on 01/20/2021 by Alexander Muñoz MD at [facility] Right: Knee [employer] 11/01/2030 [id number] / / [id number] Brng [id number] Vngrd Arcm Kn Ant Stab Implanted:Qty: 1 on 01/20/2021 by Alexander Muñoz MD at [facility] Right: Knee [employer] 09/07/2023 [id number] / / [id number] Advance Directives Documents on File Type Date Recorded Patient Drive Away Driver Expl anation Adv Directive/Living Will/POA 12/27/2020 9:45 PM * Full Code (Latest Code Status on File) Date Activated Date Inactivated Comments 01/20/2021 10:46 AM 01/21/2021 1:40 PM Care Teams Mainspring Strip Inspector Relationship Specialty Start Date End Date Eugene Hanna MD [address] [place] [address] PCP - General Internal Medicine 08/30/19 Alexander Muñoz [place] [address] [facility] [address] [place] [address] Orthopedic Surgery 02/18/18
--- OUTSIDE RECORDS SUMMARY | 2024-08-28 09:43 | XMS_ITS | Patient Health Summary ---
Author Organization [facility] Address [address] [place] [address] Care Team Providers Care Record Tabulating Clerk Name Role Phone Alexander Muñoz MD Unavailable [phone] Eugene Hanna MD Primary Care Provider [phone] Note from [facility],non-owned Affiliates and Associated Physician Practices is amultiple site organization consisting of ambulatory clinics and hospital sitesin [place], [place], [place] and [place]. This disclosure is being madepursuant to the Care Everywhere program and may not contain all information available regarding this patient. Last updated 18.[facility] Allergies * Amoxicillin(Unknown) Medications * Be aware that medications may not be up to date on this document. Alwaysverify current medications with the patient. * rosuvastatin (CRESTOR) 20 MG tablet(Started 09/08/2020) Take 20 mg by mouth once daily * cephalexin (KEFLEX) 250 MG capsule Take 250 mg by mouth once daily as needed 1 capsule within 1 hr of intercourse * Naphazoline-Pheniramine (NAPHCON-A OP) 1 drop by Ophthalmic route 2 times daily as needed * vitamin D3 (CHOLECALCIFEROL) 25 MCG (1000 UNITS) tablet Take by mouth once daily * erythromycin base EC (JAIRO-TAB) 333 MG tablet(Started 01/20/2022) Take 1 (one) tablet by mouth 3 times daily Take 1 pill 3 times daily on the day of dental appointment and again the day after dental appointment 2 refills by 01/20/2023 Active Problems Problem Noted Date Diagnosed Date [...] Mass Index 24.25 01/20/2021 6:06 AM CDT Medical Devices Implanted Type Area Director Of Radiology Device Identifier Shelf Expiration Date Model / Serial / Lot Cmnt Bone Djo Srg Cblt 40gm Hvisc Strl Implanted:Qty: 1 on 01/20/2021 by Alexander Muñoz MD at [facility] Right: Knee [employer] 06/15/2021 [id number] / / [id number] Cmpnt Ptlr 28mm 1 Pg Wire Ascnt Arcm Kn Implanted:Qty: 1 on 01/20/2021 by Alexander Muñoz MD at [facility] Right: Knee [employer] 12/06/2025 [id number] / / [id number] Cmpnt Fem Kn Rt Cr Cmnt Prm Vngrd Intlk Implanted:Qty: 1 on 01/20/2021 by Alexander Muñoz MD at [facility] Right: Knee [employer] 10/24/2030 [id number] / / [id number] Tray Tib 75mm Kn Cocr I Beam Implanted:Qty: 1 on 01/20/2021 by Alexander Muñoz MD at [facility] Right: Knee [employer] 11/01/2030 [id number] / / [id number] Brng 80vnd10ff Vngrd Arcm Kn Ant Stab Implanted:Qty: 1 on 01/20/2021 by Alexander Muñoz MD at [facility] Right: Knee [employer] 09/07/2023 [id number] / / [id number] Procedures * XR KNEE RIGHT 3VW(Performed 01/20/2022) Performed for Aftercare following right knee joint replacement surgery * XR KNEE RIGHT 3VW(Performed 03/03/2021) Performed for Aftercare following right knee joint replacement surgery * NEURAXIAL BLOCK(Performed 01/20/2021) * ARTHROPLASTY TOTAL KNEE(Performed 01/20/2021) * EKG 12-LEAD(Performed 12/26/2020) Performed for Pre-op evaluation * EKG 12-LEAD(Performed 08/30/2019) Performed for Preop examination * CBC W AUTO DIFFERENTIAL(Performed 08/30/2019) Performed for Preop examination * COMPREHENSIVE METABOLIC PANEL(Performed 08/30/2019) Performed for Preop examination * CULTURE MSSA/MRSA(Performed 08/30/2019) Performed for Preop examination * XR KNEE RIGHT 3VW(Performed 08/01/2019) Performed for Primary osteoarthritis of right knee * DERMATOPATHOLOGY(Performed 01/21/2012) Results * XR KNEE RIGHT 3VW (01/20/2022 11:17 AM CDT) Only the most recent of3 resultswithin the time period is included. Anatomical Region Laterality Modality Lower Extremity Computed Radiogr aphy Narrative 01/20/2022 11:48 AM CDT Nikki Arteaga RT(R) 01/30/2022 9:34 AM See progress notes for results Quynh Milton PA-C DIAGNOSTIC IM AGING ORDERABLES * Neuraxial Block (01/20/2021 7:57 AM CDT) Narrative Osiel Moe APRN-CRNA - 01/20/2021 7:57 AM CDT Osiel Moe APRN-CRNA 01/20/2021 8:00 AM Neuraxial Block Note Pre-Procedure: Procedure Name: Neuraxial Block Patient Location: OR Indications: surgical anesthesia Pre-Anesthetic Checklist: Patient identified, IV Checked, Risks and benefits discussed, Surgical consent verified, Monitors and equipment, Site examined, Pre-op evaluation done, Time-out performed, Informed consent obtained, Questions answered/anesthesia questions answered and Allergies reviewed Anticoagulation/ Anti-thrombosis status confirmed? Yes Supplemental O2: room air Monitors: BP, continuous pluse ox and EKG Patient Condition: sedated, meaningful contact maintained throughout procedure Patient Sedated? Yes Sedation Type: moderate Procedure: Block Type: Spinal Prep: Betadine Sterile Field: mask, cap/hat, sterile established and sterile gloves Approach: midline Spinal Block: Needle Type: spinal needle Needle Gauge: 25 Needle Length: 90 mm Placement Site: L4-5 Number of Attempts: 1 CSF: free flow, aspiration before injection, aspiration during injection, aspiration after injection Degree of difficulty: none (Very easily done.) Procedure Tolerance: tolerated well Position post procedure: supine Vital Signs: Vital signs monitored and stable throughout. See anesthesia record for details. Start Time: 01/20/2021 7:11 AM End Time: 01/20/2021 7:13 AM Total Time: 2 Staff: Anesthesia Provider: Osiel Moe APRN-CRNA - performed the procedure Nilson Foster MD GENERAL ANESTHESIA O RDERABLES * EKG 12-LEAD (12/26/2020 1:25 PM CDT) Only the most recent of2 resultswithin the time period is included. Ventricular Rate 62 BPM [facility] Atrial Rate 62 BPM [facility] P-R Interval 158 ms [facility] QRS Duration ms 92 ms [facility] Q-T Interval ms 376 ms [facility] QTC Calculation (Bezet) 381 ms [facility] Calculated P [place] 56 degrees [facility] Calculated R [place] 24 degrees [facility] Calculated T [place] 50 degrees [facility] Interpretation EKG Normal sinus rhythm with sinus arrhythmia Normal ECG Confirmed by ORI IBARRA MD ([id number]) on 12/27/2020 9:20:30 PM [facility] 12/26/2020 1:25 PM CDT 12/27/2020 9:20 PM CDT Megan Clarke DO ECG ORDERABLES [facility] * CULTURE MSSA/MRSA (08/30/2019 3:06 PM [facility]) Culture Negative for Staphylococcus aureus (MRSA/MSSA) 08/31/2019 6:40 PM [facility] MICROBIOLOGY Microbiology SPECIMEN FROM NASAL FOSSAE / Unknown Collection / Unknown 08/30/2019 3:06 PM [facility] 08/30/2019 3:18 PM [facility] Rafaela Yoon APRN-CHART WRITER LAB - MICR OBIOLOGY ORDERABLES Performing Organization Address City/[facility]/ZIP Co de Phone Number [facility] MICROBIOLOGY [address] [place], [place] [address], [facility] [phone] * CBC W AUTO DIFFERENTIAL (08/30/2019 3:06 PM [facility]) WBC 7.2 4.4 - 10.7 x10E9/L 08/30/2019 3:23 PM [facility] WBC Corrected 08/30/2019 3:23 PM [facility] RBC 4.46 3.80 - 5.20 x10E12/L 08/30/2019 3:23 PM [facility] Hemoglobin 13.3 12.0 - 15.6 gm/dL 08/30/2019 3:23 PM [facility] Hematocrit 40.3 35.9 - 45.5 % 08/30/2019 3:23 PM [facility] MCV 90.4 80.7 - 98.3 fl 08/30/2019 3:23 PM [facility] MCH 29.8 26.7 - 34.0 pg 08/30/2019 3:23 PM [facility] MCHC 33.0 30.8 - 35.9 gm/dL 08/30/2019 3:23 PM [facility] Platelet Count 250 153 - 416 x10E9/L 08/30/2019 3:23 PM [facility] RDW-CV 12.1 12.1 - 14.9 % 08/30/2019 3:23 PM [facility] MPV 10.3 9.4 - 12.9 fl 08/30/2019 3:23 PM [facility] Neutrophils % 56.4 44.0 - 73.0 % 08/30/2019 3:23 PM [facility] Lymphocytes % 34.4 20.0 - 43.0 % 08/30/2019 3:23 PM [facility] Monocytes % 6.3 5.0 - 13.0 % 08/30/2019 3:23 PM [facility] Eosinophils % 2.0 0.0 - 6.0 % 08/30/2019 3:23 PM [facility] Basophils % 0.6 0.0 - 2.0 % 08/30/2019 3:23 PM [facility] Immature Granulocytes 0.3 0 - 1 % 08/30/2019 3:23 PM [facility] Neutrophil Absolute 4.04 2.01 - 7.14 x10E9/L 08/30/2019 3:23 PM [facility] Lymphocytes Absolute 2.46 1.07 - 3.94 x10E9/L 08/30/2019 3:23 PM [facility] Monocytes Absolute 0.45 0.26 - 1.07 x10E9/L 08/30/2019 3:23 PM [facility] Eosinophils Absolute 0.14 0 - 0.47 x10E9/L 08/30/2019 3:23 PM [facility] Basophils Absolute 0.04 0 - 0.08 x10E9/L 08/30/2019 3:23 PM [facility] Immature Granulocytes Absolute 0.02 0.00 - 0.06 x10E9/L 08/30/2019 3:23 PM [facility] nRBC Auto 0 /100 WBC 08/30/2019 3:23 PM [facility] Blood BLOOD SPECIMEN / Unknown Venipuncture / Unknown 08/30/2019 3:06 PM [facility] 08/30/2019 3:18 PM [facility] Rafaela Yoon ASSOCIATE SPA DIRECTOR-CHART WRITER LAB - ASIYA TOLOGY ORDERABLES [facility] [address] [place] [address] * (ABNORMAL) COMPREHENSIVE METABOLIC PANEL (08/30/2019 3:06 PM [facility]) Glucose 85 70 - 105 mg/dL 08/30/2019 3:41 PM [facility] Sodium 141 136 - 145 mmol/L 08/30/2019 3:41 PM [facility] Potassium 4.1 3.5 - 5.1 mmol/L 08/30/2019 3:41 PM [facility] Chloride 108(H) 98 - 107 mmol/L 08/30/2019 3:41 PM [facility] CO2 25 23 - 31 mmol/L 08/30/2019 3:41 PM [facility] Calcium 9.4 8.4 - 10.4 mg/dL 08/30/2019 3:41 PM [facility] Anion Gap 8 8 - 16 mmol/L 08/30/2019 3:41 PM [facility] BUN 14 9.8 - 20.1 mg/dL 08/30/2019 3:41 PM [facility] Creatinine 0.85 0.57 - 1.11 mg/dL 08/30/2019 3:41 PM [facility] Alkaline Phosphatase 43 40 - 150 U/L 08/30/2019 3:41 PM [facility] ALT 14 0 - 61 U/L 08/30/2019 3:41 PM [facility] AST 15 5 - 34 U/L 08/30/2019 3:41 PM [facility] Protein Total 6.8 6.4 - 8.3 gm/dL 08/30/2019 3:41 PM [facility] Albumin 4.3 3.5 - 5.2 gm/dL 08/30/2019 3:41 PM [facility] Bilirubin Total 0.8 0.2 - 1.0 mg/dL 08/30/2019 3:41 PM [facility] eGFR by MDRD >60 >60 mL/min/1.7 3m2 08/30/2019 3:41 PM [facility] eGFR by MDRD >60 >60 mL/min/1.7 3m2 08/30/2019 3:41 PM [facility] Blood BLOOD SPECIMEN / Unknown Venipuncture / Unknown 08/30/2019 3:06 PM [facility] 08/30/2019 3:18 PM [facility] Rafaela CHRISTIANSONCHART WRITER LAB - CHEM ISTRY ORDERABLES Performing Organization Address City/[facility] Co de Phone Number [facility] [address] [place] [address] * PATHOLOGY TISSUE FOR DERMATOLOGY (01/21/2012 12:00 AM CDT) Result CASE: [id number] PATIENT: DAMARIS MONTESINOS PATHOLOGIC DIAGNOSIS: Left anterior lateral thigh: SOLAR LENTIGO CLINICAL DATA: R/O lentigo vs ISK vs pigmented neoplasm. GROSS DESCRIPTION: Received is one formalin filled container labeled with the patient's name and designated left anterolateral thigh. The specimen consists of a shave biopsy measuring 6x4x1 mm. Jar 0. MICROSCOPIC DESCRIPTION: There is orthokeratosis. There is a slight increase in epidermal thickness with lentiginous buds of hyperpigmented keratinocytes. The number of melanocytes is only mildly increased. In the dermis, there is basophilic degeneration of elastic fibers. Final Diagnosis performed by Kelsie Suggs M.D. Electronically signed 01/22/2012 1:59:15PM [facility] Comment: Performed at: Dermatopathology Laboratory [facility] - Department of Dermatology [address] [place] [address], [address] [place] [address] Phone number: [phone] Toll Free: [phone] FAX: [phone] 01/21/2012 01/21/2012 Andrew Jordan MD LAB - PATHOLOGY/CYTO LOGY ORDERABLES Performing Organization Address City/[facility]/ZIP Co de Phone Number [facility]. 5th Floor Lab [address] [phone] Care Teams Record Tabulating Clerk Relationship Specialty Start Date End Date Eugene Hanna MD [address] [address] PCP - General Internal Medicine 08/30/19 Alexander Muñ[place] [address] [place] [id number] Orthopedic Surgery 02/18/18
--- OUTSIDE RECORDS SUMMARY | 2024-08-28 09:43 | XMS_ITS | Clinical Summary ---
Author Organization [facility] [place] Address [address] [place] [address] Phone Care Team Providers Care Elementary Reading Specialist Name Role Phone Eugene Hanna MD Primary Care Provider + Allergies No known active allergies Medications Ibuprofen-diphen hydrAMINE HCl (Advil PM) 200-25 mg CapsuleIndicatio ns:PRN Take by mouth daily at bedtime. Active rosuvastatin (CRESTOR) 10 mg tablet Take 20 mg by mouth daily at bedtime. Active raloxifene (EVISTA) 60 mg tablet Take 1 Tablet (60 mg) by mouth daily. 90 Tablet 1 06/12/2019 Active Active Problems Patient Care Coordination No te Formatting of this note migh t be different from the original. Primary Care: Jed East MD Referring Provider: Jed East MD [address] [facility] [address] [place] [address] Other: Problem Noted Date Diagnosed Date Hot flashes, menopausal 02/06/2015 Family history of breast cancer 10/17/2014 Encounters Date Type Department Care Team Description 08/24/2024 9:40 AM CIRCULAR CLERK - 08/24/2024 11:59 PM [facility] Hospital Encounter [facility] [address] [place] [address] Eugene Hanna MD Arrived Discharge Disposition: Home or Self Care 07/26/2024 External Device Data ST[facility] ABSTRACTION Provider, Abstract 07/18/2024 External Device Data [facility] ABSTRACTION Provider, Abstract 06/30/2024 Transcribe Orders Central Test Scheduling [address] [phone] Eugene Hanna MD Visit for screening mammogram (Primary Dx) from Last 3 Months Family History Medical History Relation Name Comments Cancer Father throat Colon Cancer Maternal Uncle Colon Cancer Paternal Aunt Colon Cancer Paternal Grandfather Breast Cancer Sister Anup Clarkvictor mcarol Rajiv pa andrew neg Heart Disease Neg Hx Ovarian Cancer Neg Hx Relation Name Status Comments Father Maternal Uncle Paternal Aunt Paternal Grandfather Sister Anup Beard Alive Social History Tobacco Use Types Packs/Day Years Used Date Smoking Tobacco: Former Smokeless Tobacco: Never Alcohol Use Standard Drinks/Week Comments Yes 0 (1 standard drink = 0.6 oz pur e alcohol) moderate Comments No Sex and Gender Information Value Date Recorded Sex Assigned at Not on file Legal Sex Female 3:09 PM CDT Gender Identity Not on file Sexual Orientation Not on file Last Filed Vital Signs Vital Sign Reading Time Taken Comments Blood Pressure 124/64 06/12/2019 9:37 AM CIRCULAR CLERK Pulse 86 06/12/2019 9:37 AM CIRCULAR CLERK Temperature 36.7 C (98.1 F) 06/12/2019 9:37 AM CIRCULAR CLERK Respiratory Rate 18 08/14/2015 11:46 AM CIRCULAR CLERK Oxygen Saturation 97% 06/12/2019 9:37 AM CIRCULAR CLERK Inhaled Oxygen Concentration - - Weight 69.4 kg (153 lb) 06/12/2019 9:37 AM CIRCULAR CLERK Height 170.2 cm (5' 7 ) 06/12/2019 9:37 AM CIRCULAR CLERK Body Mass Index 23.96 06/12/2019 9:37 AM CIRCULAR CLERK Plan of Treatment Health Maintenance Due Date Last Done Comments DTAP/TDAP/TD VACCINES (1 - Tdap) 11/22/1978 CERVICAL CANCER SCREENING 11/22/1989 COLORECTAL SCREENING 11/22/2004 Colorectal Cancer Screening 11/22/2004 FIT-DNA Q 3 years 11/22/2004 FIT/FOBT Q 1 year 11/22/2004 Flex Sig/CT Colonography Q 5 years 11/22/2004 ZOSTER VACCINE (1 of 2) 11/22/2009 INFLUENZA VACCINE (#1) 2024 BREAST CANCER SCREENING 08/24/2025 08/24/19, 08/19/2023, 07/30/2022, Additional history exists RSV VACCINE (60+ or ) (1 - 1-dose 75+ series) 11/22/2034 Procedures Procedure Name Priority Date/Time Associated Diagnosis Comments MAMMO 3D KARYNA SCREEN BILAT W OR WO CAD Routine 08/24/2024 10:05 AM CIRCULAR CLERK Visit for screening mammogram from Last 3 Months Results * MAMMO 3D KARYNA SCREEN BILAT W OR WO CAD (08/24/2024 10:05 AM CIRCULAR CLERK) Anatomical Region Laterality Modality Breast Bilateral Mammography 08/24/2024 10:0 6 AM CIRCULAR CLERK Impressions 08/24/2024 11:38 AM CIRCULAR CLERK IMPRESSION: No mammographic evidence of malignancy in the bilateral breasts. Routine screening mammography is recommended in one year. OVERALL FINAL ASSESSMENT: BI-RADS CATEGORY 1 - Negative DICTATION LOCATION: Taryn Elliott 08/24/2024 11:38 AM CIRCULAR CLERK EXAMINATION: BILATERAL SCREENING DIGITAL MAMMOGRAPHY WITH TOMOSYNTHESIS AND CAD DATE: 08/24/2024 10:05 AM HISTORY: Routine screening mammography. History of a benign left breast surgical excisional biopsy. COMPARISON: Mammography with dates ranging from 08/19/2023 to 06/12/2019. TECHNIQUE: A bilateral screening mammogram was performed. Low-dose full-field digital breast tomosynthesis examination was performed with 2D and 3D acquisitions. Examination is read in conjunction with computer aided detection. BREAST COMPOSITION: There are scattered areas of fibroglandular density. FINDINGS: There are no suspicious masses, suspicious calcifications, or other suspicious findings in either breast. There has been no suspicious interval change. Computer aided detection was used in the interpretation of this examination. Shree Gottlieb MD MAMMO ORDERABLES Lawanda aguila Result from Last 3 Months Insurance [facility] OPEN ACCESS HMO Care Teams Elementary Reading Specialist Relationship Specialty Start Date End Date Eugene Hanna MD [address] [place] [id number] PCP - General Internal Medicine 12/05/18
[2024-08-28 10:07] LABS: Add Urine Microscopic? YES; Appearance Urine Cloudy (Clear); Bacteria Urine None Seen /hpf; Bilirubin Urine Negative (Negative); Blood Urine Trace (Negative); Color Urine Dark Yellow (Yellow); Glucose Urine UA Negative (Negative); Ketones Urine Negative (Negative); Leukocyte Esterase Ur 3+ LEU/UL (Negative); Need Manual Microscopic Reviewed; Nitrate Urine Positive (Negative); Non Pathogenic Casts 0-2; Protein Urine Negative (Negative); RBC Urine 0-2 /hpf (0-2); Specific Grav Ur 1.009 (1.001-1.035); Squamous Epithelial Cell Urine None Seen /hpf (Few); WBC Urine >100 /hpf (0-3); pH Urine 6.5 (5.0-9.0)
== END 2024-08-28 09:09 | disposition home or self-care (01) ==
LOC: ANHLAB 09:09
PROVIDERS: PCP Internal Medicine; Visit Provider Internal Medicine
DX: N39.0 Urinary tract infection, site not specified (principal); R30.0 Dysuria
CPT/HCPCS: 81001; 87086; 87186